=== PATIENT | male | born 1975 | race Caucasian/White ===

== ENCOUNTER 2016-08-08 21:11 | Emergency (ER) | payer BC ==
[2016-08-08 21:45] LABS: RBC URINE < 1 /hpf (0-3); URINE BILIRUBIN NEGATIVE (NEGATIVE); URINE BLOOD NEGATIVE (NEGATIVE); URINE COLOR Yellow (YELLOW); URINE GLUCOSE (UA) NORMAL (Normal); URINE KETONE TRACE mg/dL (NEGATIVE); URINE LEUKOCYTE ESTERASE NEG Leu/uL (Negative); URINE PROTEIN NEGATIVE (NEGATIVE); WBC URINE < 1 /hpf (0-5)
[2016-08-08] MEDS ORDERED: Sodium Chloride 0.9% 1,000 ML IV ONE (22:01)
[2016-08-08] MEDS ORDERED: Sodium Chloride 0.9% 1,000 ML ONE (22:05)
[2016-08-08 22:07] LABS: BASO # 0.1 K/uL (0.0-0.2); BASO % 0.9 % (0.0-2.0); EOS # 0.2 K/uL (0.0-0.7); EOS % 2.1 % (0.0-4.0); HEMATOCRIT 39.5 % (35.0-51.0); LYMPH # 1.7 K/uL (1.0-4.3); LYMPH % 21.3 % (20.0-40.0); MEAN CELL VOLUME 91.2 fL (80.0-94.0); MEAN CORPUSCULAR HEMOGLOBIN 32.5 pg (27.0-31.0); MEAN CORPUSCULAR HGB CONC 35.6 g/dL (33.0-37.0); MONO # 0.8 K/uL (0.0-0.8); MONO % 10.3 % (0.0-10.0); NRBC % 0.1 % (0.0-2.0); RED CELL DISTRIBUTION WIDTH 12.4 % (11.5-14.5); WHITE BLOOD COUNT 8.1 K/uL (4.8-10.8)
[2016-08-08 22:17] LABS: CHLORIDE 97 mmol/L (98-107); SODIUM 137 mmol/L (132-148)
[2016-08-08 22:18] LABS: POTASSIUM 3.9 mmol/L (3.6-5.2)
[2016-08-08 22:20] LABS: ALB/GLOB RATIO 1.3 (1.0-2.1); AST/SGOT 42 U/L (17-59); BILIRUBIN,TOTAL 0.5 mg/dL (0.2-1.3); BLOOD UREA NITROGEN 13 mg/dL (9-20); CARBON DIOXIDE 27 mmol/L (22-30); GFR AFRICAN-AMERICAN > 60; TOTAL PROTEIN 7.7 g/dL (6.3-8.3)
[2016-08-08 22:21] LABS: ALKALINE PHOSPHATASE 96 U/L (38-126); ALT/SGPT 31 U/L (21-72); CALCIUM 9.1 mg/dl (8.6-10.4); GLUCOSE,RANDOM 94 mg/dL (75-110)
[2016-08-08 22:35] VITALS: RESP 18
--- NOTE | 2016-08-08 23:25 | C.PDOC ---
History Of Present Illness 40 year old male presents to the ED with complaints of diarrhea and abdominal cramping after overeating at a BBQ dinner 2 nights ago. Patient states others ate the same things however he ate more. Denies vomiting, fever, chills, or any other complaints at this time. Time Seen by Provider: 08/08/16 21:56 Chief Complaint (Nursing): Abdominal Pain History Per: Patient History/Exam Limitations: no limitations Onset/Duration Of Symptoms: Days Current Symptoms Are (Timing): Still Present Severity: Mild Location Of Pain/Discomfort: Diffuse Past Medical History Reviewed: Historical Data, Nursing Documentation, Vital Signs Vital Signs: Last Vital Signs Temp 97.4 F L 08/08/16 23:36 Pulse 65 08/08/16 23:36 Resp 18 08/08/16 23:36 BP 112/76 08/08/16 23:36 Pulse Ox 98 08/08/16 23:36 - Medical History PMH: No Chronic Diseases Family History: States: Unknown Family Hx - Social History Hx Tobacco Use: No Hx Alcohol Use: No Hx Substance Use: No - Immunization History Hx Tetanus Toxoid Vaccination: No Hx Influenza Vaccination: No Hx Pneumococcal Vaccination: No Review Of Systems Except As Marked, All Systems Reviewed And Found Negative. Constitutional: Negative for: Fever, Chills Cardiovascular: Negative for: Chest Pain Respiratory: Negative for: Shortness of Breath Gastrointestinal: Positive for: Abdominal Pain, Diarrhea. Negative for: Vomiting Musculoskeletal: Negative for: Back Pain Physical Exam - Physical Exam Appears: Non-toxic, No Acute Distress, Other (+Obese) Skin: Normal Color, Warm, Dry Head: Atraumatic, Normacephalic Eye(s): bilateral: Normal Inspection Oral Mucosa: Moist Chest: Symmetrical Cardiovascular: Rhythm Regular Respiratory: Normal Breath Sounds, No Accessory Muscle Use Gastrointestinal/Abdominal: Soft, Tenderness (+Vague abdominal tenderness), No Distention, No Guarding, No Rebound Extremity: Normal ROM Neurological/Psych: Oriented x3, Normal Speech, Normal Cognition ED Course And Treatment - Laboratory Results Result Diagrams: 08/08/16 22:05 08/08/16 22:05 Lab Interpretation: Normal (UA neg.) O2 Sat by Pulse Oximetry: 100 (Room air) Pulse Ox Interpretation: Normal - Radiology CXR: Interpreted by Me CXR Interpretation: Yes: No Acute Disease - Other Rad abd x 2 X-Ray: Interpreted by Me (muiltiple air/fluid levels in the small bowel c/w diarrhea, formed stool R colon and sigmoid colon.) Progress Note: Obstructive series, Blood work, and Urinalysis ordered and reviewed. Patient treated with Toradol, Ultram, and IV fluids. Medical Decision Making Medical Decision Making: food born illness- either intolerrance or intoxication from a large BBQ ribs meal Sunday night (2 nights ago) normal labs argue against significant colitis. multiple air/fluid levels in small bowel suggest diarrhea. BRAT diet educated. Disposition Doctor Will See Patient In The: Office Counseled Patient/Family Regarding: Studies Performed, Diagnosis - Disposition Referrals: [facility] [Outside] Disposition: HOME/ ROUTINE Disposition Time: 23:25 Condition: GOOD Additional Instructions: drink plenty of fluids/Gatorade BRAT diet: Bananas, white rice, applesauce, toast/bread/crackers pepcid 20 mg @ night to lessen stomach irritation Zofran ODT 4 mg every 6-8 hours as needed for nausea/vomiting. Motrin 600 mg every 6 hours for belly discomfort Tramadol 50 mg every 6 hours for belly discomfort. return to ED if symptoms significantly worsten Prescriptions: traMADol [Ultram] 50 mg PO Q6H PRN #10 tab PRN Reason: pain Ondansetron ODT [Zofran ODT] 4 mg PO Q8H PRN #6 odt PRN Reason: Nausea/Vomiting Instructions: Acute Diarrhea (ED), Food Poisoning (ED) - Clinical Impression Clinical Impression: Abdominal discomfort, Diarrhea - Scribe Statement The provider has reviewed the documentation as recorded by the Scribe Pat Cheng. Provider Attestation: All medical record entries made by the Scribe were at my direction and personally dictated by me. I have reviewed the chart and agree that the record accurately reflects my personal performance of the history, physical exam, medical decision making, and the department course for this patient. I have also personally directed, reviewed, and agree with the discharge instructions and disposition.
[2016-08-08 23:37] VITALS: BP 112/76; PULSE 65; TEMP 97.4
[2016-08-09 01:00] VITALS: O2SAT 100
--- NOTE | 2016-08-09 12:31 | RAD ---
PROCEDURE: Radiographs of the chest and abdomen (obstructive series) HISTORY: abd pain COMPARISON: None available. FINDINGS: CHEST: Heart size appears within normal limits. No focal consolidation, significant pleural effusion, or definite pneumothorax identified.Please note that chest x-ray has limited sensitivity for the detection of pulmonary masses. ABDOMEN AND PELVIS: Nonobstructive bowel gas pattern. No definite free air. No acute osseous abnormality is detected. IMPRESSION: No acute findings.
== END 2016-08-08 23:38 | disposition home or self-care (01) ==
LOC: C.ER 21:11
DX: R19.7 Diarrhea, unspecified (principal); R10.84 Generalized abdominal pain
CPT/HCPCS: 74022; 80053; 81001; 83690; 85025; 96361; 96374; 99285; J1885; J7040